=== PATIENT | female | born 1990 | race African-American/Black ===

== ENCOUNTER 2016-11-14 00:56 | Emergency (ER) | payer OTHER ==
[~2016-11-14] VITALS: Ht 167.6 cm; Wt 90.7 kg
[~2016-11-14 00:56] MED LIST: PEPTO-BISMOL262 M1
[2016-11-14] MEDS ORDERED: IBUPROFEN 600600 M1 PO (02:47)
[2016-11-14] MEDS ORDERED: MUCINEX DM ER1 EACH PO (02:47)
[2016-11-14] MEDS ORDERED: ACETAMINOPHEN-1 EAC1 PO (02:47)
[2016-11-14 03:07] VITALS: BP 118/70
== END 2016-11-14 03:09 | disposition home or self-care (01) ==
LOC: ER 00:56
DX: J06.9 Acute upper respiratory infection, unspecified (principal)

== ENCOUNTER 2017-11-22 21:21 | Emergency (ER) | payer OTHER ==
[~2017-11-22] VITALS: Ht 170.2 cm; Wt 90.7 kg
[~2017-11-22 21:21] MED LIST changes: +ACETAMINOPHEN-1 EAC1 PO; +IBUPROFEN 600600 M1 PO; +MUCINEX DM ER1 EACH PO
[2017-11-23] MEDS ORDERED: PROMETHAZINE-C473 ML PO (00:13)
[2017-11-23] MEDS ORDERED: ZANTAC 150MG T150 MG PO (00:13)
[2017-11-23] MEDS ORDERED: PROTONIX40 M1 PO (00:13)
[2017-11-23 00:39] VITALS: BP 109/80
== END 2017-11-23 00:42 | disposition home or self-care (01) ==
LOC: ER 21:21
DX: G93.3 Postviral and related fatigue syndromes (principal); K21.9 Gastro-esophageal reflux disease without esophagitis